=== PATIENT | female | born 1940 | race Caucasian/White ===

== ENCOUNTER → 2018-08-22 | Outpatient (CLI) | payer OTHER | LOC: ULTRA 12:25 → EDBD 12:25 | DX: R22.1 Localized swelling, mass and lump, neck (principal) ==

== ENCOUNTER → 2018-09-05 | Outpatient (CLI) | payer OTHER | LOC: CAT 09:49 | DX: E04.2 Nontoxic multinodular goiter (principal); R91.8 Other nonspecific abnormal finding of lung field; M47.892 Other spondylosis, cervical region; R22.1 Localized swelling, mass and lump, neck ==

== ENCOUNTER → 2018-09-25 | Outpatient (CLI) | payer OTHER ==
--- NOTE | 2018-09-27 10:07 | PATH ---
[facility] [place] [address] PATHOLOGY RPT PROCEDURE Name: ARMANDO NIEVES Room #: REG FREDI Kramer.Amando.#: [id number] ������������������ Admission: 09/25/18 ������������������ Date of : 44 Discharge: Report #: [id number] Path Case #: [id number] Note [facility] Accession Number: [id number] TESTS RESULT FLAG UNITS REF RANGE LAB Clinician Provided Cytology Information No. of containers..01 Other (Miscellaneous) Source: LEFT NECK FNA DIAGNOSIS: LEFT NECK FINE NEEDLE ASPIRATION NEGATIVE FOR MALIGNANT CELLS. THIS INTERPRETATION INCLUDES EVALUATION OF A CELL BLOCK. Comment: Examination of the smears shows rare cell group of apocrine-like epithelial cells. Much of the specimen is comprised of macrophages, degenerated cells and lymphocytes. Due to a rare intact epithelial cell group, it is likely that this specimen is not insurance account representative of the lesion. 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 Please refer to a separate report for details. Correlate clinically and follow-up as indicated. Pathologist ICD10: 02 R22.1, D11.0 Signed out by: 02 Sandy Self MD, Pathologist NPI- [id number] Performed by: 01 Flor Tinajero, Risk Developer (ASCP) Gross description: 01 22ML, PINK, CLOUDY /LCS FLAG LEGEND: L-Low Normal,H-High Normal,LL-Alert Low,HH-Alert High <-Panic Low,>-Panic High,A-Abnormal,AA-Critical Abnormal Performed at: [facility] [address] [place] [address] [address] [place] [address] Leroy Cabrales MD, [address] [address] Sandy Self MD, Specimen Comment: A courtesy copy of this report has been sent to Specimen Comment: [phone]. Specimen Comment: Report sent to [address] [address] PATHOLOGY RPT PROCEDURE Name: ARMANDO NIEVES Room #: MIKAYLA RAI Alessandra#: [id number] ������������������ Admission: 09/25/18 ������������������ Date of : 44 Discharge: Report #: [id number] Path Case #: [id number] Specimen Comment: A duplicate report has been generated due to demographic updates. Performed at: 01 [facility] [place] [address], [place], [place] [id number] MD Leroy Cabrales MD Phone: [phone]
--- NOTE | 2018-09-27 12:07 | PATH ---
[facility] [address] [place] [address] PATHOLOGY RPT PROCEDURE Name: BARBARA NIEVES Room #: REG FREDI Hansen.#: [id number] ������������������ Admission: 09/25/18 ������������������ Date of : 44 Discharge: Report #: [id number] Path Case #: [id number] [facility] Accession Number: [id number] . 01 Material submitted: . NECK . 01 Clinical history: . Lymph node adjacent to complex cyst . 02 Diagnosis: Salivary gland, "lymph node adjacent to complex cyst", needle core biopsy: - Apocrine epithelium-lined cyst in close association with lymphoid tissue (please see comment). - Fragments of salivary gland parenchyma admixed with fibrous tissue. (IUV:kimi; 09/26/2018) MBR/09/26/2018 . 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 Please note, lesion obtained represents a minute portion and may not be entirely food service sales representatives. Correlate clinically and followup as indicated. (IUV:public relations player; 09/26/2018) . 02 Electronically signed: . Sandy Self MD, Pathologist NPI- [id number] . 01 Gross description: . The specimen is received in formalin, labeled "Benjamin, Barbara, neck" and consists of 4 needle cores of pink-celis tissue measuring between 0.3 cm and 0.6 cm in length and 0.1 cm or less each in diameter. They are entirely submitted in A1. (SDY; 09/25/2018) SYU/SYU . 02 Pathologist provided ICD-10: K11.8 . 02 CPT . 671329 Specimen Comment: A courtesy copy of this report has been sent to Specimen Comment: [phone], . Specimen Comment: Report sent to / DR HDEZ Performed at: 01 [place] [address] PATHOLOGY RPT PROCEDURE Name: BARBARA NIEVES Room #: REG FREDI Aparicio#: [id number] ������������������ Admission: 09/25/18 ������������������ Date of : 44 Discharge: Report #: [id number] Path Case #: [id number] [facility] [address], [place], [place] [id number] MD Leroy Cabrales MD Phone: [phone] Performed at: [address], [place], [place] [id number] MD Sandy Self MD Phone: [phone]
--- NOTE | 2018-09-28 11:08 | PATH ---
[facility] [address] [place] [address] PATHOLOGY RPT PROCEDURE Name: ARMANDO NIEVES Room #: MIKAYLA Hansen.#: [id number] ������������������ Admission: 09/25/18 ������������������ Date of : 44 Discharge: Report #: [id number] Path Case #: [id number] Note [facility] Accession Number: [id number] TESTS RESULT FLAG UNITS REF RANGE LAB Clinician Provided Cytology Information No. of containers..01 Other (Miscellaneous) Source: CYSTIC FLUID DIAGNOSIS: 02 CYSTIC FLUID NEGATIVE FOR MALIGNANT CELLS. SPECIMEN ENTIRELY COMPRISED OF DEGENERATED CELLULAR ELEMENTS. Pathologist ICD10: 02 R22.1 Signed out by: Sandy Self MD, Pathologist NPI- [id number] Performed by: Flor Tinajero, Sheet Rock Sander ([facility]) Gross description: 01 7ML, BROWNISH YELLOW, CLOUDY /LCS FLAG LEGEND: L-Low Normal,H-High Normal,LL-Alert Low,HH-Alert High <-Panic Low,>-Panic High,A-Abnormal,AA-Critical Abnormal Performed at: [address] [place] [address] Leroy Cabrales MD, [address] [address] Sandy Self MD, Specimen Comment: A courtesy copy of this report has been sent to Specimen Comment: [phone]. Specimen Comment: Report sent to Specimen Comment: A duplicate report has been generated due to demographic updates. Performed at: [address], [place], [place] [id number] MD Leroy Cabrales MD Phone: [phone]
== END | disposition home or self-care (01) ==
LOC: ULTRA 09:31
DX: K11.8 Other diseases of salivary glands (principal); D11.0 Benign neoplasm of parotid gland